=== PATIENT | male | born 1950 | race Caucasian/White ===

== ENCOUNTER 2022-10-14 16:49 | Emergency (ER) | payer MEDICARE, BC ==
[2022-10-14] MEDS ORDERED: HYDROmorphone 1 MG/ML Syringe IM ONE (17:29)
[2022-10-14] MEDS ORDERED: Ondansetron 4 MG Tab.DIS PO ONE (17:29)
[2022-10-14 17:41] VITALS: BP 119/68; PULSE 59
[2022-10-14] MEDS ORDERED: Bacitracin Oint 1 GM U/D Packet ONE (18:27)
[2022-10-14] MEDS ORDERED: Bacitracin Oint 1 GM U/D Packet TOP ONE (18:39)
[2022-10-14] MEDS ORDERED: Take Home: Acetaminophen/oxyCODONE 325-5 MG, 5 Tab Pack PO ONE (18:43)
== END 2022-10-14 19:10 | disposition home or self-care (01) ==
LOC: DL.ED 16:49
DX: S52.502A Unspecified fracture of the lower end of left radius, initial encounter for closed fracture (principal); I25.10 Atherosclerotic heart disease of native coronary artery without angina pectoris; E78.00 Pure hypercholesterolemia, unspecified; Z88.0 Allergy status to penicillin; Z79.82 Long term (current) use of aspirin; Z79.02 Long term (current) use of antithrombotics/antiplatelets; Z79.899 Other long term (current) drug therapy; W22.09XA Striking against other stationary object, initial encounter
CPT/HCPCS: 29125; 73110; 96372; 99283; A9270; J1170; 99282

== ENCOUNTER 2025-02-01 17:00 | Emergency (ER) | payer MEDICARE, BC ==
[2025-02-01 17:45] LABS: BASOPHILS PERCENT AUTO 0.3 % (0.0-1.0); EOSINOPHILS PERCENT AUTO 0.1 % (1.0-3.0); LYMPHOCYTES PERCENT AUTO 10.4 % (20.5-50.1); MONOCYTES PERCENT AUTO 9.9 % (2-8); NEUTROPHILS PERCENT AUTO 79.3 % (42.2-75.2); PLATELET COUNT,PLT 219 10^3/uL (150-450); RED BLOOD CELL COUNT 4.12 10^6/uL (4.6-6.2); WHITE BLOOD CELL COUNT,WBC 7.1 10^3/uL (5.0-10.0)
[2025-02-01 18:08] LABS: ALANINE AMINOTRANSFERASE,ALT 24.0 U/L (16-63); ASPARTATE AMNIOTRANSFERASE,AST 22.0 U/L (15-37); BILIRUBIN TOTAL 0.8 mg/dL (0.2-1.0); BLOOD UREA NITROGEN,BUN 17.0 mg/dL (7-18); CARBON DIOXIDE,CO2 23.0 mmol/L (21-32); CHLORIDE,CL 103.0 mmol/L (98-107); CREATININE 1.18 mg/dL (0.70-1.30); EST CRCL DRUG DOSING (CG) 54.09 mL/min; GLUCOSE RANDOM 147.0 mg/dL (70-99); POTASSIUM,K 4.1 mmol/L (3.5-5.1); PROTEIN TOTAL,TP 7.3 g/dL (6.4-8.2); SODIUM,NA 139.0 mmol/L (136-145)
[2025-02-01 18:09] LABS: A/G RATIO 0.74; ESTIMATED GFR 64.0 mL/min (>=60)
[2025-02-01 18:26] LABS: B-TYPE NATRIURETIC PEPTIDE,BNP 71.0 pg/ml (0-100)
[2025-02-01 18:32] LABS: TSH ULTRASENSITIVE 0.85 uIU/mL (0.36-3.74)
[2025-02-01 19:24] LABS: APPEARANCE,URINE CLEAR (CLEAR); GLUCOSE,URINE NEGATIVE (NEGATIVE); OCCULT BLOOD,URINE TRACE-INTACT (NEGATIVE)
[2025-02-01 19:46] LABS: EPITHELIAL CELLS,URINE RARE /HPF (NOT SEEN)
[2025-02-01 20:56] VITALS: BP 111/84; PULSE 76
== END 2025-02-01 20:57 | disposition home or self-care (01) ==
LOC: DL.ED 17:00
DX: E86.9 Volume depletion, unspecified (principal); M35.3 Polymyalgia rheumatica; I25.10 Atherosclerotic heart disease of native coronary artery without angina pectoris; E78.00 Pure hypercholesterolemia, unspecified; Z95.5 Presence of coronary angioplasty implant and graft; Z79.899 Other long term (current) drug therapy; Z79.02 Long term (current) use of antithrombotics/antiplatelets; Z79.82 Long term (current) use of aspirin; Z88.0 Allergy status to penicillin
CPT/HCPCS: 36415; 71045; 80053; 81001; 83735; 83880; 84443; 84484; 85025; 85651; 87428; 93005; 96360; 99285; J7030